=== PATIENT | male | born 1965 | race African-American/Black ===

== ENCOUNTER 2019-01-11 04:57 | Emergency (ER) | payer SELFPAY ==
[~2019-01-11] VITALS: Ht 182.9 cm; Wt 88.6 kg
[~2019-01-11 04:57] MED LIST: CEPHALEXIN500 M1 PO; LORTAB 5/500 501 TAB PO; NAPROSYN PO; NO HOME MEDICATIONS; SILVADENE CREAM1 TU TP
[2019-01-11 05:01] VITALS: TEMP 99.1
[2019-01-11] MEDS ORDERED: MOTRIN 800800 MG/TAB PO (05:28)
[2019-01-11 05:32] LABS: BASO # 0.1 (0.0-0.2); BASO % 0.3 % (0.0-2.0); EOS # 0.4 (0.0-0.7); EOS % 2.5 % (0-4.0); GRAN # 12.5 (1.4-6.5); GRAN % 74.6 % (42.2-75.2); HEMATOCRIT 39.7 % (42.0-52.0); HEMOGLOBIN 13.5 g/dl (13.5-18.0); LYMPH # 2.5 (1.2-3.4); LYMPH % 14.7 % (20.0-51.0); MEAN CELL VOLUME 92 fl (80.0-100.0); MEAN CORPUSCULAR HEMOGLOBIN 31 pg (27.0-31.0); MEAN CORPUSCULAR HGB CONC 34 g/dl (33.0-37.0); MEAN PLATELET VOLUME 10.3 fl (7.4-10.4); MONO # 1.3 (0.1-0.6); MONO % 7.5 % (1.7-9.3); PLATELET COUNT 285 K/mm3 (130-400); RED BLOOD COUNT 4.31 M/mm3 (4.20-5.60); REDCELL DISTRIBUTION WIDTH-CV 14.8 % (11.5-14.5)
[2019-01-11 05:49] LABS: ALBUMIN 4.2 gm/dL (3.5-5.0); BILIRUBIN,TOTAL 0.6 mg/dL (0.0-1.0); CALCIUM 9.1 mg/dL (8.4-10.2); CREATININE, serum 0.97 mg/dL (0.66-1.25); POTASSIUM 4.3 mmol/L (3.4-5.0); TOTAL PROTEIN 7.5 gm/dL (6.4-8.2)
[2019-01-11] MEDS ORDERED: DOXYCYCLINE HY100 MG PO (07:12)
[2019-01-11] MEDS ORDERED: NORCO 325 MG-51 TAB PO (07:12)
[2019-01-11 07:14] LABS: COLLECTION METHOD CLEAN CATCH
[2019-01-11 07:24] LABS: MUCOUS Present /lpf; PH 5 (5-8); SQUAMOUS EPITHELIAL 0-2 /hpf; URINE APPEARANCE Hazy; URINE BACTERIA Occasional /hpf; URINE BILIRUBIN Negative (NEGATIVE); URINE BLOOD 1+ (NEGATIVE); URINE COLOR Yellow; URINE GLUCOSE Negative (NEGATIVE); URINE KETONE 1+ (NEGATIVE); URINE LEUKOCYTE ESTERASE 2+ (NEGATIVE); URINE NITRATE Positive (NEGATIVE); URINE PROTEIN(semi-quant) Negative (NEGATIVE); URINE UROBILINOGEN >=4.0 mg/dL (NEGATIVE)
[2019-01-11] MEDS ORDERED: OMNICEF 300MG300 MG PO (07:28)
[2019-01-11 07:48] VITALS: BP 126/81; PULSE 91
== END 2019-01-11 07:51 | disposition home or self-care (01) ==
LOC: COL.ER 04:57
PROVIDERS: Emergency Medicine
DX: N43.3 Hydrocele, unspecified (principal); N39.0 Urinary tract infection, site not specified; F17.210 Nicotine dependence, cigarettes, uncomplicated; F12.90 Cannabis use, unspecified, uncomplicated; Z98.890 Other specified postprocedural states
CPT/HCPCS: A4216; J0696; J3010

== ENCOUNTER 2020-07-23 23:25 | Emergency (ER) | payer MEDICAID ==
[~2020-07-23] VITALS: Ht 182.9 cm; Wt 84.1 kg
[~2020-07-23 23:25] MED LIST changes: +DOXYCYCLINE HY100 MG PO; +MOTRIN 800800 MG/TAB PO; +NORCO 325 MG-51 TAB PO; +OMNICEF 300MG300 MG PO
[2020-07-23 23:37] VITALS: TEMP 97.8
[2020-07-24 02:23] VITALS: BP 152/85; PULSE 74
== END 2020-07-24 02:24 | disposition home or self-care (01) ==
LOC: COL.ER 23:25
DX: M25.561 Pain in right knee (principal); F17.290 Nicotine dependence, other tobacco product, uncomplicated
CPT/HCPCS: J1885

== ENCOUNTER 2021-09-27 18:55 | Inpatient (IN) | payer MEDICAID ==
[~2021-09-27] VITALS: Ht 182.9 cm; Wt 80.0 kg
[2021-09-27 19:21] LABS: BASO # 0.1 K/mm3 (0.0-0.2); BASO % 0.4 % (0.0-2.0); EOS # 1.3 K/mm3 (0.0-0.7); EOS % 7.4 % (0-4.0); GRAN # 8.6 K/mm3 (1.4-6.5); GRAN % 47.7 % (42.2-75.2); HEMATOCRIT 38.1 % (42.0-52.0); HEMOGLOBIN 11.6 g/dl (13.5-18.0); LYMPH # 7.2 K/mm3 (1.2-3.4); LYMPH % 39.8 % (20.0-51.0); MEAN CELL VOLUME 100 fl (80.0-100.0); MEAN CORPUSCULAR HEMOGLOBIN 31 pg (27.0-31.0); MEAN CORPUSCULAR HGB CONC 30 g/dl (33.0-37.0); MEAN PLATELET VOLUME 9.4 fl (7.4-10.4); MONO # 0.6 K/mm3 (0.1-0.6); MONO % 3.6 % (1.7-9.3); PLATELET COUNT 411 K/mm3 (130-400); REDCELL DISTRIBUTION WIDTH-CV 14.6 % (11.5-14.5)
[2021-09-27 19:37] LABS: ALBUMIN 3.8 gm/dL (3.5-5.0); BILIRUBIN,TOTAL 0.2 mg/dL (0.2-1.2); CALCIUM 9.4 mg/dL (8.4-10.2); CREATININE, serum 1.26 mg/dL (0.72-1.25); POTASSIUM 3.3 mmol/L (3.5-4.5); TOTAL PROTEIN 7.6 gm/dL (6.2-8.1)
[2021-09-27 20:30] LABS: COLLECTION METHOD CATHETER
[2021-09-27 20:38] LABS: BAND 1 % (0-10); EOSINOPHIL 6 % (0-4); LYMPHOCYTE 40 % (20.0-51.0); NEUTROPHILS 49 % (42.0-75.2); PLATELET ESTIMATE INCREASED (NORMAL)
[2021-09-27 20:42] LABS: MUCOUS Present (NOT PRESENT); PH 6 (5-8); SQUAMOUS EPITHELIAL 0-2 /hpf (0-10); URINE APPEARANCE Hazy (CLEAR/HAZY); URINE BACTERIA Rare (NONE SEEN); URINE BILIRUBIN Negative (NEGATIVE); URINE BLOOD 1+ (NEGATIVE); URINE COLOR Yellow (YELLOW); URINE GLUCOSE Negative (NEGATIVE); URINE KETONE Negative (NEGATIVE); URINE LEUKOCYTE ESTERASE Negative (NEGATIVE); URINE NITRATE Negative (NEGATIVE); URINE PROTEIN(semi-quant) 1+ (NEGATIVE); URINE RBC 0-2 /hpf (0-2); URINE UROBILINOGEN Negative (NEGATIVE)
[2021-09-27 20:46] LABS: TRICYCLIC ANTIDEPRESS URINE NEGATIVE
[2021-09-27 23:03] LABS: ARTERIAL BLD GAS O2 SATURATION 96.4 % (92-100); ARTERIAL BLD GAS TCO2 CT 17.6; ARTERIAL BLOOD GAS BASE EXCESS -12.4 (-2-2); ARTERIAL BLOOD GAS HCO3 16.2 meq/L (22-26); ARTERIAL BLOOD GAS PCO2 47.5 mmHg (35-45); ARTERIAL BLOOD GAS PO2 102.5 mmHg (80-100)
[2021-09-27 23:16] LABS: ARTERIAL BLD GAS O2 SATURATION 95.5 % (92-100); ARTERIAL BLD GAS TCO2 CT 19.5; ARTERIAL BLOOD GAS BASE EXCESS -10.7 (-2-2); ARTERIAL BLOOD GAS HCO3 17.9 meq/L (22-26); ARTERIAL BLOOD GAS PCO2 51.5 mmHg (35-45); ARTERIAL BLOOD GAS PO2 94.7 mmHg (80-100)
[2021-09-27 23:17] LABS: ARTERIAL BLOOD GAS pH 7.16 (7.35-7.45)
[2021-09-27 23:19] LABS: ARTERIAL BLOOD GAS pH 7.15 (7.35-7.45)
[2021-09-27 23:29] LABS: PROTHROMBIN TIME 11.6 SECONDS (9.7-12.8)
[2021-09-28] VITALS (613 sets, daily range): BP systolic 106–158; BP diastolic 53–102; PULSE 76–105; TEMP 98–100.5; O2SAT 90–100
--- NOTE | 2021-09-28 01:45 | NUR ---
CARES TAKEN OVER BY THIS RN AT 0115. PT TRANSFERRED FROM CART TO BED WITH ASSIST OF 3 AND SLIDE BOARD. PT INTUBATED AND SEDATED. BUCKING VENT WITH ACITIVITY. INCREASED PROPOFOL GTT AND FENT GTT PREVIOUSLY DOCUMENTED. PT OPENS EYES AND MOVES EXTREMETIES WITH PHYSICAL STIMULATION. DOES NOT FOLLOW COMMANDS. MCCORMICK PATENT AND DRAINING WITH CLEAR PALE URINE. VSS.
[2021-09-28 02:02] LABS: ARTERIAL BLD GAS O2 SATURATION 99.2 % (92-100); ARTERIAL BLD GAS TCO2 CT 18.7; ARTERIAL BLOOD GAS BASE EXCESS -8.5 (-2-2); ARTERIAL BLOOD GAS HCO3 17.6 meq/L (22-26); ARTERIAL BLOOD GAS PCO2 38.3 mmHg (35-45); ARTERIAL BLOOD GAS PO2 167.8 mmHg (80-100); ARTERIAL BLOOD GAS pH 7.28 (7.35-7.45)
--- NOTE | 2021-09-28 02:40 | NUR ---
THIS RN ATTEMPTED TO DO MUCH ADMIT INTAKE/ASSESSMENT ABLE. PT INTUBATED/SEDATED. LAYNE, SISTER, CALLED WITH NO SUCCESS BY SILVA PÉREZ.
--- NOTE | 2021-09-28 05:21 | NUR ---
SEDATION VACATION NOT DONE PER SILVA INSECTICIDE MIXER.
[2021-09-28 05:23] LABS: BASO % 0.3 % (0.0-2.0); EOS # 0.3 K/mm3 (0.0-0.7); EOS % 2.7 % (0-4.0); GRAN # 8.6 K/mm3 (1.4-6.5); GRAN % 80.3 % (42.2-75.2); HEMOGLOBIN 11.2 g/dl (13.5-18.0); LYMPH # 1.4 K/mm3 (1.2-3.4); LYMPH % 12.5 % (20.0-51.0); MEAN CELL VOLUME 96 fl (80.0-100.0); MEAN CORPUSCULAR HEMOGLOBIN 31 pg (27.0-31.0); MEAN CORPUSCULAR HGB CONC 32 g/dl (33.0-37.0); MEAN PLATELET VOLUME 9.5 fl (7.4-10.4); MONO # 0.4 K/mm3 (0.1-0.6); MONO % 3.7 % (1.7-9.3); RED BLOOD COUNT 3.65 M/mm3 (4.20-5.60); REDCELL DISTRIBUTION WIDTH-CV 14.6 % (11.5-14.5)
[2021-09-28 05:33] LABS: ALBUMIN 3.3 gm/dL (3.5-5.0); BILIRUBIN,TOTAL 0.3 mg/dL (0.2-1.2); CALCIUM 8.5 mg/dL (8.4-10.2); CREATININE, serum 0.81 mg/dL (0.72-1.25); MAGNESIUM 1.8 mg/dL (1.6-2.6); PHOSPHOROUS 2.9 mg/dL (2.3-4.7); TOTAL PROTEIN 6.6 gm/dL (6.2-8.1)
[2021-09-28 05:36] LABS: TROPONIN-I 6 HR POST INITIAL 0.083 ng/mL (0.00-0.033)
[2021-09-28 05:49] LABS: PLATELET COUNT 303 K/mm3 (130-400)
[2021-09-28 06:11] LABS: ARTERIAL BLD GAS O2 SATURATION 95.7 % (92-100); ARTERIAL BLD GAS TCO2 CT 20.8; ARTERIAL BLOOD GAS BASE EXCESS -5.8 (-2-2); ARTERIAL BLOOD GAS HCO3 19.6 meq/L (22-26); ARTERIAL BLOOD GAS PCO2 38.3 mmHg (35-45); ARTERIAL BLOOD GAS PO2 85.1 mmHg (80-100); ARTERIAL BLOOD GAS pH 7.33 (7.35-7.45)
--- NOTE | 2021-09-28 07:00 | NUR ---
Pt is intubated and sedated. Pt on propofol and fent. VSS. Will contiue to margie.
--- NOTE | 2021-09-28 14:33 | NUR ---
KASIA access of records: KASIA called VIJAYA Mother Coleen Coachman to obtain basic information. Coleen reports that the patient resides with a friend. Mother reports that Dr. Kaufman is the patients PCP but unknown when she last seen him. Mother denies the patient having a DPOA or software support representative. Mother indicated that the patient does use a Cane for mobility but no other DME supports. Will attempt to follow-up with the patient after the extubation.
--- NOTE | 2021-09-28 16:51 | NUR ---
PT OPENS EYES TO VOICE. PT MOVES ALL EXTREMETIES. PT ABLE TO FOLLOW SIMPLE COMMANDS. PT BECMOING TACHYPNIC AND RESTLESS. SEDATION INCREASED.
--- NOTE | 2021-09-28 22:46 | NUR ---
56 yo male admitted for respiratory arrest secondary to overdose now with concerns for possible sepsis of unknown etioloy. ht 72in wt 80.2kg SCr 0.81 with estimated CrCl >60 ml/min half life 8.9 hours Plan: Will give an initial loading dose of vancomycin 2000 mg x1 (24.9 mg/kg); followed by a maintenance regimen of vancomycin 1000 mg q8h to target a goal trough of 15-20 mcg/ml. Will follow patient's renal function, micro data, and vancomycin levels as indicated to assess for any necessary changes to regimen. Thank you for this dosing consult.
[2021-09-29] VITALS (717 sets, daily range): BP systolic 119–161; BP diastolic 69–90; PULSE 61–84; TEMP 98–99.2; O2SAT 79–100
[2021-09-29 04:34] LABS: ARTERIAL BLD GAS O2 SATURATION 97.6 % (92-100); ARTERIAL BLD GAS TCO2 CT 22.1; ARTERIAL BLOOD GAS BASE EXCESS -3.7 (-2-2); ARTERIAL BLOOD GAS PCO2 36.4 mmHg (35-45); ARTERIAL BLOOD GAS PO2 98.5 mmHg (80-100); ARTERIAL BLOOD GAS pH 7.38 (7.35-7.45)
--- NOTE | 2021-09-29 07:00 | NUR ---
PT IS ON A SEDATION VACATION AND VENT WEANING TRIAL. VSS. [facility] .
--- NOTE | 2021-09-29 07:01 | NUR ---
SEDATION VACATION DOCUMENTED. PT OPENS EYES TO NAME, FOLLOWS COMMANDS. STRONG CARDIOVASCULAR RN BILATERALLY, LIFTS LEGS OFF PILLOWS WHEN ASKED.
[2021-09-29 07:49] LABS: ALBUMIN 2.6 gm/dL (3.5-5.0); BILIRUBIN,TOTAL 0.2 mg/dL (0.2-1.2); CALCIUM 8.3 mg/dL (8.4-10.2); CREATININE, serum 0.87 mg/dL (0.72-1.25); MAGNESIUM 1.8 mg/dL (1.6-2.6); PHOSPHOROUS 2.4 mg/dL (2.3-4.7); POTASSIUM 4.1 mmol/L (3.5-4.5); TOTAL PROTEIN 5.7 gm/dL (6.2-8.1)
--- NOTE | 2021-09-29 12:00 | NUR ---
EXTUBATED PT TO ROOM AIR. NO COMPLICATIONS. RN BEDSIDE
--- NOTE | 2021-09-29 12:00 | NUR ---
SEDATION COMPLETLY STOPPED PER . PT EXTUBATED AT 1200. PT PLACED ON 2L NC. PT IS AWAKE BUT LETHARGIC. PT ABLE TO FOLLOW COMMANDS. WILL CONTINUE TO MONITOR.
[2021-09-30] VITALS (305 sets, daily range): BP systolic 148–162; BP diastolic 80–101; PULSE 73–93; TEMP 98.9–99.9; O2SAT 90–100
[2021-09-30 06:02] LABS: BASO % 0.3 % (0.0-2.0); EOS # 1.1 K/mm3 (0.0-0.7); EOS % 11.8 % (0-4.0); GRAN # 6.6 K/mm3 (1.4-6.5); GRAN % 69.1 % (42.2-75.2); LYMPH # 1.2 K/mm3 (1.2-3.4); LYMPH % 12.9 % (20.0-51.0); MEAN CELL VOLUME 95 fl (80.0-100.0); MEAN CORPUSCULAR HEMOGLOBIN 31 pg (27.0-31.0); MEAN CORPUSCULAR HGB CONC 32 g/dl (33.0-37.0); MEAN PLATELET VOLUME 9.9 fl (7.4-10.4); MONO # 0.5 K/mm3 (0.1-0.6); MONO % 5.5 % (1.7-9.3); PLATELET COUNT 282 K/mm3 (130-400); RED BLOOD COUNT 3.27 M/mm3 (4.20-5.60); REDCELL DISTRIBUTION WIDTH-CV 14.5 % (11.5-14.5)
[2021-09-30 06:07] LABS: HEMATOCRIT 30.9 % (42.0-52.0)
--- NOTE | 2021-09-30 06:09 | NUR ---
PT SLEPT WELL OVER NIGHT. ON RA. DENIES SOA. ASKS WHEN HE CAN GO HOME. MCCORMICK PATENT AND DRAINING WITH ADEQUATE OUTPUT. CALL LIGHT WITHIN REACH.
[2021-09-30 06:21] LABS: ALBUMIN 2.7 gm/dL (3.5-5.0); BILIRUBIN,TOTAL 0.5 mg/dL (0.2-1.2); CREATININE, serum 0.84 mg/dL (0.72-1.25); MAGNESIUM 1.7 mg/dL (1.6-2.6); PHOSPHOROUS 2.6 mg/dL (2.3-4.7); POTASSIUM 3.4 mmol/L (3.5-4.5)
[2021-09-30] MEDS ORDERED: AMOXICILLIN 8751 TAB PO (09:54)
--- NOTE | 2021-09-30 12:17 | NUR ---
Pt escorted out, belongings provided from Security team. Pt offered and refused scrub shirt as pt's shirt and sweater cut by EMS.
--- NOTE | 2021-09-30 16:01 | NUR ---
Fabrication Operator met with patient as he will be discharged home today. Patient is not interested in drug/alcohol resources, however SW left a print out of local resources. Patient would like his antibiotics sent to [facility] Patient advised he used to go to [facility] for primary care. KASIA contacted SEAN Esparza-CM at [facility] who will follow up with the physicians as he is not active in their system.
== END 2021-09-30 12:15 | disposition home or self-care (01) | DRG 917 ==
LOC: COL.ER → EDBD 18:55 → ICU 23:51
PROVIDERS: Family Medicine; Internal Medicine Pulmonary Disease; Internal Medicine Sleep Medicine; Nurse Practitioner Family; ADMIT Student in an Organized Health Care Education/Training Program
PROC: 5A1945Z Respiratory Ventilation, 24-96 Consecutive Hours (ICD-10-PCS; principal; 2021-09-28)
PROC: 0BH17EZ Insertion of Endotracheal Airway into Trachea, Via Natural or Artificial Opening (ICD-10-PCS; 2021-09-28)
PROC: 5A09357 Assistance with Respiratory Ventilation, Less than 24 Consecutive Hours, Continuous Positive Airway Pressure (ICD-10-PCS; 2021-09-28)
DX: T43.621A Poisoning by amphetamines, accidental (unintentional), initial encounter (principal); J96.01 Acute respiratory failure with hypoxia; G92.9 Unspecified toxic encephalopathy; J96.02 Acute respiratory failure with hypercapnia; I21.A1 Myocardial infarction type 2; J69.0 Pneumonitis due to inhalation of food and vomit; S12.9XXA Fracture of neck, unspecified, initial encounter; N17.9 Acute kidney failure, unspecified; E87.2 Acidosis; T40.601A Poisoning by unspecified narcotics, accidental (unintentional), initial encounter; T40.5X1A Poisoning by cocaine, accidental (unintentional), initial encounter; N43.3 Hydrocele, unspecified; R73.9 Hyperglycemia, unspecified; E87.6 Hypokalemia; D64.9 Anemia, unspecified; D75.839 Thrombocytosis, unspecified; F10.10 Alcohol abuse, uncomplicated; Y90.6 Blood alcohol level of 120-199 mg/100 ml
CPT/HCPCS: 99223-AI; 99233-AI; 99239; J0330; J1644; J2310; J2543; J2704; J3010; J3370; J7030; J7050; J7120; J7121

== ENCOUNTER 2022-04-30 13:02 | Emergency (ER) | payer MEDICAID ==
[~2022-04-30] VITALS: Ht 182.9 cm; Wt 81.8 kg
[~2022-04-30 13:02] MED LIST changes: +AMOXICILLIN 8751 TAB PO
[2022-04-30 13:09] VITALS: TEMP 98
[2022-04-30] MEDS ORDERED: BACTRIM DS 8001 TAB PO (13:45)
[2022-04-30 14:20] VITALS: BP 123/74; PULSE 95
== END 2022-04-30 14:40 | disposition home or self-care (01) ==
LOC: COL.ER 13:02
DX: L03.115 Cellulitis of right lower limb (principal); F17.210 Nicotine dependence, cigarettes, uncomplicated; Z28.310 Unvaccinated for COVID-19
CPT/HCPCS: J0696